=== PATIENT | female | born 1990 | race African-American/Black ===

== ENCOUNTER 2017-05-18 10:20 | Emergency (ER) | payer SELFPAY ==
--- NOTE | 2017-05-18 10:52 | ER Document Report ---
ED Medical Screen (RME) - General Chief Complaint: Abdominal Pain Stated Complaint: STOMACH PAIN Time Seen by Provider: 05/18/17 10:50 Mode of Arrival: Ambulatory Information source: Patient TRAVEL OUTSIDE OF THE [place] IN LAST 30 DAYS: No - HPI Patient complains to provider of: abd pain/?abscess Onset: Other - pt with intermittent lower abdominal pain and irregular periods for several weeks. Also, c/o swollen, tender lesion in vaginal area - Related Data Allergies/Adverse Reactions: No Known Drug Allergies Allergy (Verified 05/18/17 10:28) Past Medical History - Past Medical History Cardiac Medical History: Reports: Hx Hypertension Denies: Hx Heart Murmur Renal/ Medical History: Denies: Hx Kidney Stones, Hx Peritoneal Dialysis GI Medical History: Reports: Hx Gastroesophageal Reflux Disease. Denies: Hx Hiatal Hernia, Hx Ulcer Musculoskeltal Medical History: Denies Hx Fibromyalgia Traumatic Medical History: Denies: Hx Fractures Infectious Medical History: Denies: Hx HIV Past Surgical History: Reports: Hx Section - 2013 - Immunizations Hx Diphtheria, Pertussis, Tetanus Vaccination: Yes Physical Exam - Vital signs Vitals: Temp Pulse Resp BP Pulse Ox 97.9 F 74 18 116/64 100 05/18/17 10:30 05/18/17 10:30 05/18/17 10:30 05/18/17 10:30 05/18/17 10:30 Course - Vital Signs Vital signs: Temp Pulse Resp BP Pulse Ox 97.9 F 74 18 116/64 100 05/18/17 10:30 05/18/17 10:30 05/18/17 10:30 05/18/17 10:30 05/18/17 10:30
[2017-05-18 11:32] LABS: APPEARANCE,URINE CLOUDY; BILIRUBIN,URINE NEGATIVE (NEGATIVE); GLUCOSE, URINE NEGATIVE (NEGATIVE); KETONES,URINE NEGATIVE (NEGATIVE); LEUKOCYTE ESTERASE,URINE LARGE (NEGATIVE); NITRITE,URINE NEGATIVE (NEGATIVE); PROTEIN,URINE 30 mg/dL (NEGATIVE); URINE SPECIFIC GRAVITY 1.033
[2017-05-18 11:36] LABS: ABSOLUTE EOSINOPHILS # (AUTO) 0.2 10^3/uL (0.0-0.6); ABSOLUTE MONOCYTES (AUTO) 0.3 10^3/uL (0.1-1.4); ABSOLUTE NEUT (AUTO) 2.6 10^3/uL (1.7-8.2); BASOPHILS % (AUTO) 0.6 % (0-2); EOSINOPHILS % (AUTO) 3.9 % (0-6); HEMATOCRIT 35.6 % (36.0-47.0); HEMOGLOBIN 11.5 g/dL (12.0-15.5); HGB HCT DIFFERENCE -1.1; MEAN CORPUSCULAR HEMOGLOBIN 26.8 pg (27.0-33.4); MEAN CORPUSCULAR HGB CONC 32.2 g/dL (32.0-36.0); MEAN CORPUSCULAR VOLUME 83 fl (80-97); MONOCYTES % (AUTO) 6.4 % (3-13); RED BLOOD COUNT 4.28 10^6/uL (3.72-5.28); SEGMENTED NEUTROPHILS % (AUTO) 50.1 % (42-78); WHITE BLOOD COUNT 5.2 10^3/uL (4.0-10.5)
[2017-05-18 11:48] LABS: ALANINE AMINOTRANSFERASE 32 U/L (9-52); ALKALINE PHOSPHATASE 60 U/L (38-126); ANION GAP 11 (5-19); ASPARTATE AMINO TRANSFERASE 20 U/L (14-36); BILIRUBIN,DIRECT 0.3 mg/dL (0.0-0.4); BILIRUBIN,TOTAL 0.3 mg/dL (0.2-1.3); BLOOD UREA NITROGEN 12 mg/dL (7-20); CALCIUM 9.3 mg/dL (8.4-10.2); CARBON DIOXIDE 27 mmol/L (22-30); CHLORIDE 105 mmol/L (98-107); CREATININE RESULT 0.64 mg/dL (0.52-1.25); GLUCOSE 120 mg/dL (75-110); SODIUM 142.6 mmol/L (137-145); TOTAL PROTEIN 7.3 g/dL (6.3-8.2)
--- NOTE | 2017-05-18 11:55 | ER Document Report ---
ED GI/ - General Chief Complaint: Abdominal Pain Stated Complaint: STOMACH PAIN Time Seen by Provider: 05/18/17 10:50 Mode of Arrival: Ambulatory Information source: Patient TRAVEL OUTSIDE OF THE [place] IN LAST 30 DAYS: No - HPI Patient complains to provider of: Dysuria, Pelvic pain Timing/Duration: Intermittent, Persistent Quality of pain: Achy Location: Pelvis Associated symptoms: None Exacerbated by: Denies Relieved by: Denies Similar symptoms previously: Yes Recently seen / treated by doctor: Yes Notes: 05/18/17 11:53 Patient is a 27-year-old female presenting to the emergency room complaining of pain to her scar that has been going on for over a year now, she also has dysuria without hematuria, no fever or chills, no nausea or vomiting, no diarrhea, patient also complaining of lesion in her perineal area which is erythematous, tender, indurated and draining, also feels similar lesion in her left axilla - Related Data Allergies/Adverse Reactions: No Known Drug Allergies Allergy (Verified 05/18/17 10:28) Past Medical History - General Information source: Patient - Social History Smoking Status: Never Smoker Chew tobacco use (# tins/day): No Frequency of alcohol use: None Drug Abuse: None Family History: Reviewed & Not Pertinent - Past Medical History Cardiac Medical History: Reports: Hx Hypertension Denies: Hx Heart Murmur Renal/ Medical History: Denies: Hx Kidney Stones, Hx Peritoneal Dialysis GI Medical History: Reports: Hx Gastroesophageal Reflux Disease. Denies: Hx Hiatal Hernia, Hx Ulcer Musculoskeltal Medical History: Denies Hx Fibromyalgia Traumatic Medical History: Denies: Hx Fractures Infectious Medical History: Denies: Hx HIV Past Surgical History: Reports: Hx Section - 2014 - Immunizations Hx Diphtheria, Pertussis, Tetanus Vaccination: Yes Review of Systems - Review of Systems Constitutional: No symptoms reported EENT: No symptoms reported Cardiovascular: No symptoms reported Respiratory: No symptoms reported Gastrointestinal: See HPI Genitourinary: See HPI Female Genitourinary: No symptoms reported Musculoskeletal: No symptoms reported Skin: See HPI Hematologic/Lymphatic: No symptoms reported Neurological/Psychological: No symptoms reported -: Yes All other systems reviewed and negative Physical Exam - Vital signs Vitals: Temp Pulse Resp BP Pulse Ox 97.9 F 74 18 116/64 100 05/18/17 10:30 05/18/17 10:30 05/18/17 10:30 05/18/17 10:30 05/18/17 10:30 Interpretation: Normal - General General appearance: Appears well, Alert - HEENT Head: Normocephalic, Atraumatic Eyes: Normal Pupils: PERRL - Respiratory Respiratory status: No respiratory distress Chest status: Nontender Breath sounds: Normal Chest palpation: Normal - Cardiovascular Rhythm: Regular Heart sounds: Normal auscultation Murmur: No - Abdominal Inspection: Normal Distension: No distension Bowel sounds: Normal Tenderness: Tender - scar is clean dry and intact, no erythema, no increased scarring, fluctuance, no abnormality, patient does report some tenderness when I palpate Organomegaly: No organomegaly - Back Back: Normal, Nontender - Extremities General upper extremity: Normal inspection, Nontender, Normal color, Normal ROM , Normal temperature General lower extremity: Normal inspection, Nontender, Normal color, Normal ROM , Normal temperature, Normal weight bearing. No: Anastasiia's sign - Neurological Neuro grossly intact: Yes Cognition: Normal Orientation: AAOx4 Hollis Coma Scale Eye Opening: Spontaneous Hollis Coma Scale Verbal: Oriented Hollis Coma Scale Motor: Obeys Commands Indira Coma Scale Total: 15 Speech: Normal Motor strength normal: LUE, RUE, LLE, RLE Sensory: Normal - Psychological Associated symptoms: Normal affect, Normal mood - Skin Skin Temperature: Warm Skin Moisture: Dry Skin Color: Normal Skin irregularity: Abscess, Erythema, Tender indurated area - 1 cm area of induration in the right peroneal, positive purulent drainage, tender to palpate Course - Re-evaluation Re-evalutation: 05/18/17 12:02 Patient with small area of folliculitis in the perineum, also evidence of a urinary tract infection, I see no abnormality with her scar and this symptom appears to be more chronic in nature, she was advised to follow-up with [facility] and/or pain, return if symptoms worsen, patient acknowledges understanding and agreement with this plan - Vital Signs Vital signs: Temp Pulse Resp BP Pulse Ox 97.9 F 74 18 116/64 100 05/18/17 10:30 05/18/17 10:30 05/18/17 10:30 05/18/17 10:30 05/18/17 10:30 - Laboratory Result Diagrams: 05/18/17 11:05 05/18/17 11:05 Laboratory results interpreted by me: 05/18/17 05/18/17 05/18/17 10:55 11:05 11:05 Hgb 11.5 L Hct 35.6 L MCH 26.8 L RDW 15.0 H Glucose 120 H Urine Protein 30 H Urine Blood LARGE H Urine Urobilinogen 2.0 H Ur Leukocyte Esterase LARGE H Discharge - Discharge Clinical Impression: Folliculitis UTI (urinary tract infection) Qualifiers: Urinary tract infection type: site unspecified Hematuria presence: without hematuria Qualified Code(s): N39.0 - Urinary tract infection, site not specified Condition: Stable Disposition: HOME, SELF-CARE Instructions: Urinary Tract Infection ([facility]), Folliculitis ([facility]), Cephalexin ( [facility]), Trimethoprim-Sulfa ([facility]), Ob-Acute Care Clinical Nurse Specialist Doctors Additional Instructions: Follow up with your primary care provider in one to 2 days. Return to the emergency room immediately if symptoms worsen or any additional concerns. Prescriptions: Cephalexin Monohydrate [Keflex 500 mg Capsule] 500 mg PO BID #20 capsule Sulfamethoxazole/Trimethoprim [Bactrim Ds Tablet] 1 each PO BID #20 tablet
[2017-05-18 12:13] VITALS: BP 110/70
== END 2017-05-18 12:15 | disposition home or self-care (01) ==
LOC: ER 10:20
DX: N39.0 Urinary tract infection, site not specified (principal); L73.9 Follicular disorder, unspecified; R10.9 Unspecified abdominal pain; R10.2 Pelvic and perineal pain
CPT/HCPCS: 36415; 80053; 81001; 81025; 85025; 99284

== ENCOUNTER 2018-06-18 11:54 | Emergency (ER) | payer SELFPAY ==
[2018-06-18 12:24] VITALS: BP 116/72
[2018-06-18] MEDS ORDERED: BENZONATATE 100 MG CAPSULE PO ONE (12:45)
[2018-06-18] MEDS ORDERED: PREDNISONE 20 MG TABLET PO ONE (12:49)
--- NOTE | 2018-06-18 12:54 | ER Document Report ---
HPI - HPI Pain Level: 3 Notes: Patient is a 28-year-old female who presents with chief complaint of cough, congestion and low-grade fever that started yesterday. Patient reports several family members have had similar symptoms. Patient denies any chronic medical issues. Patient has not taken any [id number] medications. - CONSTITUTIONAL Constitutional: REPORTS: Fever, Chills - EENT EENT: REPORTS: Sore Throat - NEURO Neurology: REPORTS: Headache - RESPIRATORY Respiratory: REPORTS: Coughing - REPRODUCTIVE Reproductive: DENIES: : Past Medical History - General Information source: Patient - Social History Smoking Status: Never Smoker Chew tobacco use (# tins/day): No Frequency of alcohol use: None Drug Abuse: None Family History: Reviewed & Not Pertinent Patient has suicidal ideation: No Patient has homicidal ideation: No - Past Medical History Cardiac Medical History: Reports: Hx Hypertension Denies: Hx Heart Murmur Renal/ Medical History: Denies: Hx Kidney Stones, Hx Peritoneal Dialysis GI Medical History: Reports: Hx Gastroesophageal Reflux Disease. Denies: Hx Hiatal Hernia, Hx Ulcer Musculoskeletal Medical History: Denies Hx Fibromyalgia Traumatic Medical History: Denies: Hx Fractures Infectious Medical History: Denies: Hx HIV Past Surgical History: Reports: Hx Section - x2 - Immunizations Hx Diphtheria, Pertussis, Tetanus Vaccination: Yes Vertical Provider Document - CONSTITUTIONAL Notes: PHYSICAL EXAMINATION: GENERAL: Well-appearing, well-nourished and in no acute distress. HEAD: Atraumatic, normocephalic. EYES: Pupils equal round extraocular movements intact, conjunctiva are normal. ENT: Nares patent, oropharynx clear without exudates or erythema, no tonsillar swelling noted, uvula midline, no evidence of DIE SINKER APPRENTICE. NECK: Normal range of motion, enlarged lymph node to the anterior cervical chain on the left side. LUNGS: No respiratory distress, lung sounds clear to auscultation bilaterally. Musculoskeletal: Normal range of motion NEUROLOGICAL: Normal speech, normal gait. PSYCH: Normal mood, normal affect. SKIN: Warm, Dry, normal turgor, no rashes or lesions noted. - INFECTION CONTROL TRAVEL OUTSIDE OF THE [place] IN LAST 30 DAYS: No Course - Re-evaluation Re-evalutation: Patient appears well and is in no distress. Examination consistent with upper respiratory illness. Patient will be treated with supportive measures. Patient to follow-up with primary care provider if not improving over the next 3 -5 days. Patient educated on good handwashing and also isolating herself from all of the children that live in her house. Patient verbalizes understanding of same. - Vital Signs Vital signs: Temp Pulse Resp BP Pulse Ox 98.2 F 88 18 116/72 98 06/18/18 12:21 06/18/18 12:21 06/18/18 12:21 06/18/18 12:21 06/18/18 12:21 Discharge - Discharge Clinical Impression: Upper respiratory infection Qualifiers: URI type: unspecified viral URI Qualified Code(s): J06.9 - Acute upper respiratory infection, unspecified Condition: Stable Disposition: HOME, SELF-CARE Additional Instructions: Viral Syndrome The physician has diagnosed a viral infection. Viruses not only cause "colds," but can cause many different symptoms including generalized aching, fever, headache, cough, diarrhea, nausea, vomiting, and fatigue. The treatment, for the most part, is simply relief of symptoms. This means that antibiotics are usually not given. Rest, fluids, pain medications and, occasionally, medication for the specific symptoms that are most bothersome will be prescribed. Use good handwashing to avoid passing the virus to others. Shared toys should be cleaned with disinfectant. Clean the toilets, sinks, and counter surfaces in bathrooms. Launder clothing in hot water. Contact the physician if you develop any new or unusual symptoms such as severe headache, stiff neck, high fever, chest pain, productive cough, or shortness of breath. You should be rechecked if you don't see marked improvement within seven to 10 days. Increase fluids Rest and perform good handwashing Cool mist humidifier near your bed Take cough medicine as prescribed Take the steroids once daily for the next 4 days you are already given today's dose Use the Flonase 2 sprays in each nostril twice daily. Follow-up with your primary care provider in 1 week Prescriptions: Benzonatate [Tessalon Perles 100 mg Capsule] 100 mg PO Q8HP PRN #40 capsule PRN Reason: Fluticasone Propionate [Flonase Nasal [place] 50 Mcg/[place] 16 gm] 2 sprays NASL Q12 #1 inhaler Prednisone [Deltasone 20 mg Tablet] 3 tab PO DAILY 4 Days #12 tablet Forms: Return to Work
== END 2018-06-18 13:08 | disposition home or self-care (01) ==
LOC: ER 11:54
DX: J06.9 Acute upper respiratory infection, unspecified (principal); J02.9 Acute pharyngitis, unspecified; R50.9 Fever, unspecified; R51 Headache; I10 Essential (primary) hypertension
CPT/HCPCS: 99282; J7512

== ENCOUNTER 2018-11-08 21:39 | Emergency (ER) | payer SELFPAY ==
[2018-11-08 22:50] LABS: ABSOLUTE BASOPHILS # (AUTO) 0.1 10^3/uL (0.0-0.2); ABSOLUTE EOSINOPHILS # (AUTO) 0.3 10^3/uL (0.0-0.6); ABSOLUTE LYMPHOCYTES (AUTO) 2.8 10^3/uL (0.5-4.7); ABSOLUTE MONOCYTES (AUTO) 0.5 10^3/uL (0.1-1.4); BASOPHILS % (AUTO) 0.8 % (0-2); EOSINOPHILS % (AUTO) 4.7 % (0-6); HEMATOCRIT 34.4 % (36.0-47.0); HEMOGLOBIN 11.8 g/dL (12.0-15.5); LYMPHOCYTES % (AUTO) 41.3 % (13-45); MEAN CORPUSCULAR HEMOGLOBIN 28.8 pg (27.0-33.4); MEAN CORPUSCULAR HGB CONC 34.4 g/dL (32.0-36.0); MEAN CORPUSCULAR VOLUME 84 fl (80-97); MONOCYTES % (AUTO) 7.6 % (3-13); PLATELET COUNT 247 10^3/uL (150-450); RED BLOOD COUNT 4.11 10^6/uL (3.72-5.28); RED CELL DISTRIBUTION WIDTH 14.3 % (11.5-14.0); SEGMENTED NEUTROPHILS % (AUTO) 45.6 % (42-78); TOTAL CELLS COUNTED % (AUTO) 100 %; WHITE BLOOD COUNT 6.7 10^3/uL (4.0-10.5)
[2018-11-08 23:04] LABS: ALANINE AMINOTRANSFERASE 30 U/L (9-52); ALBUMIN 4.1 g/dL (3.5-5.0); ALKALINE PHOSPHATASE 59 U/L (38-126); ANION GAP 8 (5-19); ASPARTATE AMINO TRANSFERASE 22 U/L (14-36); BILIRUBIN,DIRECT 0.1 mg/dL (0.0-0.4); BILIRUBIN,TOTAL 0.3 mg/dL (0.2-1.3); BLOOD UREA NITROGEN 18 mg/dL (7-20); CALCIUM 9.9 mg/dL (8.4-10.2); CARBON DIOXIDE 28 mmol/L (22-30); CHLORIDE 107 mmol/L (98-107); GLUCOSE 82 mg/dL (75-110); LIPASE 138.7 U/L (23-300); POTASSIUM 4.4 mmol/L (3.6-5.0); SODIUM 142.5 mmol/L (137-145); TOTAL PROTEIN 7.7 g/dL (6.3-8.2)
[2018-11-08 23:12] LABS: APPEARANCE,URINE SLIGHTLY-CLOUDY; BILIRUBIN,URINE NEGATIVE (NEGATIVE); COLOR,URINE YELLOW; GLUCOSE, URINE NEGATIVE (NEGATIVE); KETONES,URINE NEGATIVE (NEGATIVE); LEUKOCYTE ESTERASE,URINE NEGATIVE (NEGATIVE); NITRITE,URINE NEGATIVE (NEGATIVE); PROTEIN,URINE NEGATIVE (NEGATIVE)
[2018-11-09] MEDS ORDERED: FAMOTIDINE 20 MG TABLET PO ONE (00:29)
[2018-11-09] MEDS ORDERED: SUCRALFATE 1 GM TABLET PO ONE (00:29)
[2018-11-09] MEDS ORDERED: METOCLOPRAMIDE HCL ORAL SOLN 10 MG/10 ML UDCUP PO ONE (00:31)
[2018-11-09] MEDS ORDERED: LIDOCAINE 2% VISCOUS SOLN 20 ML UDCUP PO ONE (00:31)
[2018-11-09] MEDS ORDERED: MAG HYDROX/AL HYDROX/SIMETH SUSP 30 ML UDCUP PO ONE (00:31)
--- NOTE | 2018-11-09 00:33 | ER Document Report ---
ED General - General Chief Complaint: Abdominal Pain Stated Complaint: ABDOMINAL PAIN Time Seen by Provider: 11/08/18 21:56 Notes: Patient is a 28-year-old female without chronic medical problems, prior surgical history of a , presents with upper abdominal pain after eating spicy hot wings. Patient states that she felt like she was having indigestion, mild, throbbing, burning pain to her epigastrium. States that she took some Tums [id number] and that it mostly relieved her symptoms. She states that she has intermittent he had similar symptoms when she eats either spicy or fatty foods. Denies any current pain at time of my evaluation. States that she was nauseated earlier but did not vomit. Has not seen her primary care physician regarding today's concerns. She denies fever or constitutional symptoms. TRAVEL OUTSIDE OF THE [place] IN LAST 30 DAYS: No - Related Data Allergies/Adverse Reactions: No Known Drug Allergies Allergy (Verified 11/08/18 22:51) Past Medical History - General Information source: Patient - Social History Smoking Status: Never Smoker Frequency of alcohol use: None Drug Abuse: None Lives with: Family Family History: Reviewed & Not Pertinent Patient has suicidal ideation: No Patient has homicidal ideation: No - Past Medical History Cardiac Medical History: Reports: Hx Hypertension Denies: Hx Heart Murmur Renal/ Medical History: Denies: Hx Kidney Stones, Hx Peritoneal Dialysis GI Medical History: Reports: Hx Gastroesophageal Reflux Disease. Denies: Hx Hiatal Hernia, Hx Ulcer Musculoskeletal Medical History: Denies Hx Fibromyalgia Traumatic Medical History: Denies: Hx Fractures Infectious Medical History: Denies: Hx HIV Past Surgical History: Reports: Hx Section - x2 - Immunizations Hx Diphtheria, Pertussis, Tetanus Vaccination: Yes Review of Systems - Review of Systems Notes: Constitutional: Negative for fever. HENT: Negative for sore throat. Eyes: Negative for visual changes. Cardiovascular: Negative for chest pain. Respiratory: Negative for shortness of breath. Gastrointestinal: Positive for abdominal pain and nausea Genitourinary: Negative for dysuria. Musculoskeletal: Negative for back pain. Skin: Negative for rash. Neurological: Negative for headaches, weakness or numbness. 10 point ROS negative except as marked above and in HPI. Physical Exam - Vital signs Vitals: Temp Pulse Resp BP Pulse Ox 99.5 F 82 20 116/66 100 11/08/18 21:41 03/02/19 21:41 11/08/18 21:41 11/08/18 21:41 11/08/18 21:41 Interpretation: Normal Notes: PHYSICAL EXAMINATION: GENERAL: Well-appearing, well-nourished and in no acute distress. HEAD: Atraumatic, normocephalic. EYES: Pupils equal round and reactive to light, extraocular movements intact, sclera anicteric, conjunctiva are normal. ENT: nares patent, oropharynx clear without exudates. Moist mucous membranes. NECK: Normal range of motion, supple without lymphadenopathy LUNGS: Breath sounds clear to auscultation bilaterally and equal. No wheezes rales or rhonchi. HEART: Regular rate and rhythm without murmurs ABDOMEN: Soft, nontender, normoactive bowel sounds. No guarding, no rebound. No masses appreciated. EXTREMITIES: Normal range of motion, no pitting or edema. No cyanosis. NEUROLOGICAL: No focal neurological deficits. Moves all extremities spontaneously and on command. PSYCH: Normal mood, normal affect. SKIN: Warm, Dry, normal turgor, no rashes or lesions noted. Course - Re-evaluation Re-evalutation: 11/09/18 00:29 Patient presents with epigastric abdominal pain consistent with likely gastritis or duodenitis versus symptomatic cholelithiasis. Patient has no focal abdominal tenderness on examination. Right upper quadrant ultrasound does reveal cholelithiasis with a reported positive sonographic Arrington's test although there is no evidence of pericholecystic fluid or gallbladder wall thickening. On repeat abdominal exam post ultrasound the patient remains without any focal areas of abdominal tenderness. Lipase is normal. No LFT changes. Based on history and exam, I do not suspect ACS, pulmonary embolus, SBO, mesenteric ischemia, acute pancreatitis, or an abdominal aortic dissection. Patient has had improvement of symptoms here with a GI cocktail. I have advised follow-up with surgery if the patient is not having improvement on prescribed famotidine and Carafate as this would be more suggestive of symptomatic cholelithiasis. At this time will discharge with return precautions and follow-up recommendations. Verbal discharge instructions given a the bedside and opportunity for questions given. Medication warnings reviewed. Patient is in agreement with this plan and has verbalized understanding of return precautions and the need for primary care follow-up in the next 24-72 hours. - Vital Signs Vital signs: Temp Pulse Resp BP Pulse Ox 99.5 F 82 20 116/66 100 11/08/18 21:41 11/08/18 21:41 11/08/18 21:41 11/08/18 21:41 11/08/18 21:41 - Laboratory Result Diagrams: 11/08/18 22:40 11/08/18 22:40 Laboratory results interpreted by me: 11/08/18 11/08/18 22:40 22:52 Hgb 11.8 L Hct 34.4 L RDW 14.3 H Urine Blood SMALL H Urine Urobilinogen 4.0 H - Diagnostic Test Radiology reviewed: Reports reviewed Discharge - Discharge Clinical Impression: Upper abdominal pain Cholelithiasis Qualifiers: Cholelithiasis location: gallbladder Cholecystitis presence: without cholecystitis Biliary obstruction: without biliary obstruction Qualified Code(s): K80.20 - Calculus of gallbladder without cholecystitis without obstruction Condition: Good Disposition: HOME, SELF-CARE Additional Instructions: Your symptoms appear to be most consistent with stomach or upper intestinal irritation. An alternative consideration would be that your gallbladder could be causing her symptoms as you do have some gallstones in the gallbladder although no evidence that your gallbladder was acutely inflamed or needs emergency surgery. Please begin taking famotidine 40 mg in the morning and 40 mg at night. Take Carafate prior to meals. Please return to emergency dep artment immediately if you have worsening of your pain, shortness of breath, vomiting, become unable to exert yourself due to pain or difficulty breathing, you pass out, or have any pain that radiates into your arms, jaw, or back. Please also return if you have any additional symptoms that are concerning to you. As we have discussed, the most important thing is lifestyle changes. You need to avoid smoking, sodas, tea, coffee, alcohol, spicy foods, and acidic foods such as citrus fruits, tomato based products, berries, and most fruit juices. If you find that fatty foods are consistently triggering your symptoms, This is strongly suggestive that it could be related to the gallstones. I encourage you to follow-up with general surgery included here in the paperwork if this does occur. Prescriptions: Famotidine 40 mg PO BID #60 tablet Sucralfate [Carafate 1 gm Tablet] 1 gm PO ACHS #120 tablet Referrals: AISSATOU BARNES MD [ACTIVE STAFF] - Follow up as needed
--- NOTE | 2018-11-09 01:49 | RADIOLOGY REPORT (SQ) ---
CLINICAL HISTORY: upper abdominal pain COMPARISON: None. TECHNIQUE: US ABDOMEN LIMITED on 11/09/2018 12:08 AM TRANSITIONS MANAGER RN FINDINGS: Liver is normal in appearance. Portal vein is patent. Gallbladder contains multiple gallstones and is overall poorly seen. There is no wall thickening or pericholecystic fluid. There is a reported positive sonographic Arrington sign. Common bile duct measures 4 mm. Right kidney measures 11.3 cm without hydronephrosis. Abdominal aorta is not aneurysmal. IMPRESSION: Cholelithiasis with a positive sonographic Arrington sign.
[2018-11-09 02:42] VITALS: BP 130/93
== END 2018-11-09 02:49 | disposition home or self-care (01) ==
LOC: ER 21:39
DX: K80.20 Calculus of gallbladder without cholecystitis without obstruction (principal); R10.13 Epigastric pain; R11.0 Nausea; I10 Essential (primary) hypertension; Z87.19 Personal history of other diseases of the digestive system
CPT/HCPCS: 99284; 36415; 87086; 83690; 85025; 81025; 80053; 81001; 76705; J3490

== ENCOUNTER 2019-11-09 13:41 | Emergency (ER) | payer SELFPAY ==
[2019-11-09 14:16] VITALS: BP 118/79
--- NOTE | 2019-11-09 14:37 | ER Document Report ---
HPI - HPI Time Seen by Provider: 11/09/19 14:09 Pain Level: 3 Notes: Patient is an otherwise healthy 29-year-old female presenting with possible abscess to her left buttock. She states it started about 3 days ago. She does report history of abscesses in the past but not in this area. She is unsure if she has had a history of MRSA. Denies any other illness or fever. - REPRODUCTIVE Reproductive: DENIES: : Past Medical History - General Information source: Patient - Social History Smoking Status: Never Smoker Chew tobacco use (# tins/day): No Family History: Reviewed & Not Pertinent Patient has suicidal ideation: No Patient has homicidal ideation: No - Past Medical History Cardiac Medical History: Reports: Hx Hypertension Denies: Hx Heart Murmur Renal/ Medical History: Denies: Hx Kidney Stones, Hx Peritoneal Dialysis GI Medical History: Reports: Hx Gastroesophageal Reflux Disease. Denies: Hx Hiatal Hernia, Hx Ulcer Musculoskeletal Medical History: Denies Hx Fibromyalgia Traumatic Medical History: Denies: Hx Fractures Infectious Medical History: Denies: Hx HIV Past Surgical History: Reports: Hx Section - x2 - Immunizations Hx Diphtheria, Pertussis, Tetanus Vaccination: Yes Vertical Provider Document - CONSTITUTIONAL Notes: PHYSICAL EXAMINATION: GENERAL: Well-appearing, well-nourished and in no acute distress. HEAD: Atraumatic, normocephalic. EYES: Pupils equal round extraocular movements intact, conjunctiva are normal. ENT: Nares patent NECK: Normal range of motion LUNGS: No respiratory distress Musculoskeletal: Normal range of motion NEUROLOGICAL: Normal speech, normal gait. PSYCH: Normal mood, normal affect. SKIN: Small area of induration on the left buttock within the folds, no induration noted, no obvious erythema noted. - INFECTION CONTROL TRAVEL OUTSIDE OF THE [place] IN LAST 30 DAYS: No Course - Re-evaluation Re-evalutation: No obvious abscess formation, no area of fluctuance, not appropriate this time for incision and drainage. Patient will be started on antibiotics and she will be instructed to do sits baths 3-4 times daily. Patient verbalized understanding and agreement with plan as well as discharge return precautions. - Vital Signs Vital signs: Temp Pulse Resp BP Pulse Ox 98.3 F 81 18 118/79 100 11/09/19 14:10 11/09/19 14:10 11/09/19 14:10 11/09/19 14:10 11/09/19 14:10 Discharge - Discharge Clinical Impression: Abscess Condition: Stable Disposition: HOME, SELF-CARE Additional Instructions: You were seen for an abscess was not ready for drainage. Please clean this area with soap and water twice daily and apply a topical antibiotic. Sit in a hot sitz bath 4 times daily. Please return if you develop fever, vomiting, the pain at the site worsens, you notice spreading redness from the area, or you have any other symptoms that are concerning to you. Take all medications as prescribed. Prescriptions: Sulfamethoxazole/Trimethoprim [Bactrim Ds Tablet] 1 tab PO BID #14 tablet Hydrocodone/Acetaminophen [Immaculata 5-325 mg Tablet] 1 tab PO Q4H #10 tablet Forms: Return to Work
== END 2019-11-09 14:54 | disposition home or self-care (01) ==
LOC: ER 13:41
DX: L02.31 Cutaneous abscess of buttock (principal); I10 Essential (primary) hypertension
CPT/HCPCS: 99282

== ENCOUNTER 2020-09-06 14:32 | Emergency (ER) | payer SELFPAY ==
--- NOTE | 2020-09-06 16:18 | ER Document Report ---
ED Medical Screen (RME) - General Chief Complaint: Pelvic Pain Stated Complaint: ABDOMINAL PAIN Time Seen by Provider: 09/06/20 16:05 Primary Care Provider: KOTA MUNOZ MD [Primary Care Provider] - Follow up as needed TRAVEL OUTSIDE OF THE [place] IN LAST 30 DAYS: No - HPI Notes: 09/06/20 16:15 30-year-old female (twins) presents to the emergency room for pelvic crampi ng and spotting for the last 2 weeks, last menstrual cycle was 08/19/2020. She is also complaining of lower back pain for the last 2 to 3 days. Denies any trauma or falls. Reports better when she is laying flat. Patient has tried [id number] Tylenol ibuprofen heating pad without full relief. Patient states she does not do to get her menstrual cycle until September 19, 2019. She reports she did have a tubal ligation done. Denies any abdominal pain, chest pain, shortness of breath, fevers or chills. I have greeted and performed a rapid initial assessment of this patient. A comprehensive ED assessment and evaluation of the patient, analysis of test results and completion of the medical decision making process will be conducted by additional ED providers. PHYSICAL EXAMINATION: GENERAL: Well-appearing, well-nourished and in no acute distress. CV: s1, s2 regular LUNGS: No respiratory distress abd: Prepubic tenderness on palpation Musculoskeletal: Normal range of motion. Tenderness in LS spine on palpation. NEUROLOGICAL: Normal speech, normal gait. SKIN: Warm, Dry, normal turgor, no rashes or lesions noted. The patient was evaluated during a global COVID-19 pandemic and that diagnosis was suspected/considered upon their initial presentation. Their evaluation, treatment and testing was consistent with current guidelines for patients who present with complaints or symptoms and may be related to COVID-19. - Related Data Allergies/Adverse Reactions: No Known Drug Allergies Allergy (Verified 09/06/20 16:08) Past Medical History - Past Medical History Cardiac Medical History: Reports: Hx Hypertension Denies: Hx Heart Murmur Renal/ Medical History: Denies: Hx Kidney Stones, Hx Peritoneal Dialysis GI Medical History: Reports: Hx Gastroesophageal Reflux Disease. Denies: Hx Hiatal Hernia, Hx Ulcer Musculoskeltal Medical History: Denies Hx Fibromyalgia Traumatic Medical History: Denies: Hx Fractures Infectious Medical History: Denies: Hx HIV Past Surgical History: Reports: Hx Section - x2 - Immunizations Hx Diphtheria, Pertussis, Tetanus Vaccination: Yes Physical Exam - Vital signs Vitals: Temp Pulse Resp BP Pulse Ox 98.2 F 96 16 118/62 99 09/06/20 15:21 09/06/20 15:21 09/06/20 15:21 09/06/20 15:21 09/06/20 15:21 Course - Vital Signs Vital signs: Temp Pulse Resp BP Pulse Ox 98.2 F 96 16 118/62 99 09/06/20 15:21 09/06/20 15:21 09/06/20 15:21 09/06/20 15:21 09/06/20 15:21 Doctor's Discharge - Discharge Referrals: KOTA MUNOZ MD [Primary Care Provider] - Follow up as needed
--- NOTE | 2020-09-06 17:02 | RADIOLOGY REPORT (SQ) ---
EXAM DESCRIPTION: U/S NON-OB PELVIS TV W/O DOP IMAGES COMPLETED DATE/TIME: 09/06/2020 4:46 pm REASON FOR STUDY: vaginal bleeding, lmp 08/19/2020 COMPARISON: None. TECHNIQUE: Dynamic and static grayscale images acquired of the pelvis via transvaginal approach and recorded on PACS. Additional selected color Doppler and spectral images recorded. LIMITATIONS: None. FINDINGS: UTERUS: Contour normal. No mass. ENDOMETRIAL STRIPE: No focal or generalized thickening. No masses. CERVIX: Small nabothian cysts. RIGHT OVARY AND DOPPLER: Normal size. No worrisome masses. Normal arterial vascular flow without evid ence for torsion. LEFT OVARY AND DOPPLER: Normal size. No worrisome masses. Normal arterial vascular flow without evide nce for torsion. FREE FLUID: None noted. OTHER: No other significant finding. MEASUREMENTS: UTERUS: 4.4 x 5.2 x 9.8 cm. ENDOMETRIAL STRIPE: 1.4 cm. RIGHT OVARY: 1.4 x 1.2 x 2.4 cm. LEFT OVARY: 1.9 x 2.9 x 3.8 cm. IMPRESSION: NORMAL TRANSVAGINAL PELVIC ULTRASOUND. TECHNICAL DOCUMENTATION: JOB ID: [id number] [employer]- All Rights Reserved Rev-01/24 Reading location - IP/workstation name: [email or web address]
[2020-09-06 17:33] LABS: APPEARANCE,URINE CLEAR; BILIRUBIN,URINE NEGATIVE (NEGATIVE); COLOR,URINE YELLOW; GLUCOSE, URINE NEGATIVE (NEGATIVE); KETONES,URINE NEGATIVE (NEGATIVE); LEUKOCYTE ESTERASE,URINE SMALL (NEGATIVE); NITRITE,URINE NEGATIVE (NEGATIVE); PROTEIN,URINE NEGATIVE (NEGATIVE); URINE SPECIFIC GRAVITY 1.023; UROBILINOGEN,URINE NEGATIVE mg/dL (<2.0)
--- NOTE | 2020-09-06 17:39 | RADIOLOGY REPORT (SQ) ---
EXAM DESCRIPTION: L SPINE WHOLE IMAGES COMPLETED DATE/TIME: 09/06/2020 5:21 pm REASON FOR STUDY: if hcg neg, lbp x3 days. no trauma COMPARISON: None. NUMBER OF VIEWS: Five views including obliques. TECHNIQUE: AP, lateral, oblique, and sacral radiographic images acquired of the lumbar spine. LIMITATIONS: None. FINDINGS: MINERALIZATION: Normal. SEGMENTATION: Normal. No transitional anatomy. ALIGNMENT: Normal. VERTEBRAE: Maintained height. No fracture or worrisome bone lesion. DISCS: Preserved height. No significant osteophytes or end plate irregularity. POSTERIOR ELEMENTS: Mild facet arthropathy is seen at the lower levels. Pedicles and facets are inta ct. No pars defect or posterior arch defects. HARDWARE: None in the spine. PARASPINAL SOFT TISSUES: Normal. PELVIS: Intact as visualized. No fractures or worrisome bone lesions. SI joints intact. OTHER: No other significant finding. IMPRESSION: Mild multilevel facet arthropathy. No acute findings. TECHNICAL DOCUMENTATION: JOB ID: [id number] 2010 [employer]- All Rights Reserved Reading location - IP/workstation name: [email or web address]
[2020-09-06 20:25] LABS: ABSOLUTE BASOPHILS # (AUTO) 0.1 10^3/uL (0.0-0.2); ABSOLUTE EOSINOPHILS # (AUTO) 0.3 10^3/uL (0.0-0.6); ABSOLUTE LYMPHOCYTES (AUTO) 2.8 10^3/uL (0.5-4.7); ABSOLUTE MONOCYTES (AUTO) 0.5 10^3/uL (0.1-1.4); BASOPHILS % (AUTO) 0.8 % (0-2); TOTAL CELLS COUNTED % (AUTO) 100 %
[2020-09-06] MEDS ORDERED: KETOROLAC TROMETHAMINE 60 MG/2 ML SDV IM ONE (20:27)
[2020-09-06 20:31] LABS: ABSOLUTE NEUT (AUTO) 3.7 10^3/uL (1.7-8.2); EOSINOPHILS % (AUTO) 4.2 % (0-6); HEMATOCRIT 36.2 % (36.0-47.0); HEMOGLOBIN 12.8 g/dL (12.0-15.5); LYMPHOCYTES % (AUTO) 38.1 % (13-45); MEAN CORPUSCULAR HEMOGLOBIN 29.5 pg (27.0-33.4); MEAN CORPUSCULAR HGB CONC 35.3 g/dL (32.0-36.0); MEAN CORPUSCULAR VOLUME 84 fl (80-97); MONOCYTES % (AUTO) 6.6 % (3-13); PLATELET COUNT 274 10^3/uL (150-450); RED BLOOD COUNT 4.34 10^6/uL (3.72-5.28); SEGMENTED NEUTROPHILS % (AUTO) 50.3 % (42-78); WHITE BLOOD COUNT 7.4 10^3/uL (4.0-10.5)
--- NOTE | 2020-09-06 20:34 | ER Document Report ---
ED GI/ - General Chief Complaint: Pelvic Pain Stated Complaint: ABDOMINAL PAIN Time Seen by Provider: 09/06/20 16:05 Primary Care Provider: KOTA MUNOZ MD [Primary Care Provider] - Follow up in 3-5 days TRAVEL OUTSIDE OF THE [place] IN LAST 30 DAYS: No - HPI Notes: 09/06/20 20:29 Patient is a 30-year-old female who presents with vaginal bleeding and back pain. Patient states that she has had about 2 weeks of vaginal spotting. She states it does not fill up a whole pad throughout the day. She states her last period was August 19. Her periods are normally regular. She also mentions some lower pelvic cramping. Patient denies any nausea, vomiting, diarrhea, cons tipation. Patient denies any vaginal discharge or concern for STDs. She declined STD testing. Patient also has a separate complaint of low back pain that radiates down her right leg. This started about 2 days ago. She states she has been lifting heavy things at work. It is worse when she walks and moves. Back pain is better when she lays flat. Patient took ibuprofen last night with minimal relief. She denies any numbness or tingling. No saddle paresthesia. - Related Data Allergies/Adverse Reactions: No Known Drug Allergies Allergy (Verified 09/06/20 16:08) Past Medical History - General Information source: Patient - Social History Smoking Status: Unknown if Ever Smoked Family History: Reviewed & Not Pertinent - Past Medical History Cardiac Medical History: Reports: Hx Hypertension Denies: Hx Heart Murmur Renal/ Medical History: Denies: Hx Kidney Stones, Hx Peritoneal Dialysis GI Medical History: Reports: Hx Gastroesophageal Reflux Disease. Denies: Hx Hiatal Hernia, Hx Ulcer Musculoskeletal Medical History: Denies Hx Fibromyalgia Traumatic Medical History: Denies: Hx Fractures Infectious Medical History: Denies: Hx HIV Past Surgical History: Reports: Hx Section - x2 - Immunizations Hx Diphtheria, Pertussis, Tetanus Vaccination: Yes Review of Systems - Review of Systems Notes: CONSTITUTIONAL: No fever, fatigue or weight loss. SKIN: No rash. ENDOCRINE: No thyroid problems. No polyuria or polydipsia. CARDIOVASCULAR: No chest pain or edema. RESPIRATORY: No cough, shortness of breath, congestion, or wheezing. GASTROINTESTINAL: No abdominal pain, nausea, vomiting, bloody stools or diarrhea. GENITOURINARY: No dysuria. Positive for vaginal spotting. MUSCULOSKELETAL: Positive for low back pain that radiates down her right leg. NEUROLOGIC: No seizures. No headache, focal weakness or sensory changes. HEMATOLOGIC: No unusual bruising or bleeding. PSYCHIATRIC: No depression or anxiety. Physical Exam - Vital signs Vitals: Temp Pulse Resp BP Pulse Ox 98.2 F 96 16 118/62 99 09/06/20 15:21 09/06/20 15:21 09/06/20 15:21 09/06/20 15:21 09/06/20 15:21 - General General appearance: Appears well In distress: None Notes: VITAL SIGNS: Within normal limits. GENERAL: No acute distress, non-toxic appearance. HEAD: Normal with no signs of head trauma. EYES: Conjunctiva normal, no discharge. EARS: Hearing grossly intact. NECK: Normal range of motion, no tenderness, supple, no lymphadenopathy, No adenopathy, no JVD. CHEST: Clear breath sounds bilaterally. No wheezes, rales, or rhonchi. CARDIAC: Regular rate and rhythm. S1 and S2, without murmurs, gallops, or rub s. VASCULAR: No Edema. ABDOMEN: Normal and soft with no tenderness, no masses GENITOURINARY: Normal, No tenderness MUSCULOSKELETAL: Good range of motion of all major joints. Extremities without clubbing, cyanosis or edema. Discomfort to palpation of lumbar spine. Discomfort to palpation of right piriformis area. NEUROLOGICAL: Alert and oriented x 3. No focal sensory or strength deficits. Speech normal. Follows commands appropriately. PSYCHIATRIC: Normal Affect, judgement and mood. SKIN: Normal appearance with no rashes or lesions. Course - Re-evaluation Re-evalutation: 09/06/20 20:34 Patient appears well on exam. She is in no acute distress. Her transvaginal ultrasound was normal. I will check blood work to make sure her blood counts are normal. Patient was told to follow-up with [facility] and was provided the number. She states she has an appointment coming up in a couple of weeks. I informed her to return to the ER if bleeding worsens. Patient's back pain seems consistent with sciatica. I informed her that she can continue ibuprofen. I will also prescribe a muscle relaxer and a lidocaine patch. Patient was told to follow-up with her PCP. Strict return precautions provided. - Vital Signs Vital signs: Temp Pulse Resp BP Pulse Ox 98.3 F 77 18 121/85 100 09/06/20 20:52 09/06/20 20:52 09/06/20 20:52 09/06/20 20:52 09/06/20 20:52 - Laboratory Results Result Diagrams: 09/06/20 16:48 09/06/20 16:48 Laboratory Results Interpreted: 09/06/20 09/06/20 16:48 16:48 Sodium 136.4 L Urine Blood MODERATE H Ur Leukocyte Esterase SMALL H Critical Laboratory Results Reviewed: No Critical Results - Radiology Results Critical Radiology Results Reviewed: No Critical Results Discharge - Discharge Clinical Impression: Vaginal spotting Low back pain Qualifiers: Chronicity: acute Back pain laterality: midline Sciatica presence: with sciatica Sciatica laterality: sciatica of right side Qualified Code(s): M54.41 - Lumbago with sciatica, right side Sciatica Qualifiers: Laterality: right Qualified Code(s): M54.31 - Sciatica, right side Condition: Stable Disposition: HOME, SELF-CARE Instructions: Abdominal Pain ([facility]), Low Back Pain ([facility]) Additional Instructions: Your work-up today is reassuring. Please follow-up with [facility] and your family doctor. Do not take the muscle relaxers before driving. Return to the ER immediately for any worsening or change of symptoms. Prescriptions: Cyclobenzaprine HCl 5 mg PO TID PRN 3 Days #9 tablet PRN Reason: Lidocaine 1 each TP DAILY PRN 4 Days #4 adh..patch PRN Reason: Forms: Return to Work Referrals: KOTA MUNOZ MD [Primary Care Provider] - Follow up in 3-5 days
[2020-09-06 20:35] LABS: ALBUMIN 4.1 g/dL (3.5-5.0); ALKALINE PHOSPHATASE 56 U/L (38-126); ANION GAP 8 (5-19); ASPARTATE AMINO TRANSFERASE 26 U/L (14-36); BILIRUBIN,DIRECT 0.1 mg/dL (0.0-0.4); BILIRUBIN,TOTAL 0.5 mg/dL (0.2-1.3); BLOOD UREA NITROGEN 16 mg/dL (7-20); CALCIUM 9.7 mg/dL (8.4-10.2); CARBON DIOXIDE 24 mmol/L (22-30); CHLORIDE 104 mmol/L (98-107); GLUCOSE 92 mg/dL (75-110); POTASSIUM 4.3 mmol/L (3.6-5.0); TOTAL PROTEIN 8.1 g/dL (6.3-8.2)
[2020-09-06 20:53] VITALS: BP 121/85
== END 2020-09-06 20:53 | disposition home or self-care (01) ==
LOC: ER 14:32
DX: N93.9 Abnormal uterine and vaginal bleeding, unspecified (principal); M47.816 Spondylosis without myelopathy or radiculopathy, lumbar region; R10.2 Pelvic and perineal pain; M54.41 Lumbago with sciatica, right side; I10 Essential (primary) hypertension
CPT/HCPCS: 99285; 96372; 36415; 84702; 85025; 80053; 81001; 72110; 76830; J1885